=== PATIENT | female | born 2005 | race Asian ===

== ENCOUNTER 2024-07-15 08:51 | Outpatient (AMB) | payer OTHER, SELFPAY ==
[2024-07-15 09:09] VITALS: BP 97/61; PULSE 75; RESP 18; TEMP 36.2; O2SAT 98; BMI 23.9
--- NOTE | 2024-07-15 09:09 | OBCLNT_ITS ---
Vital Signs 07/15/24 09:09 Height 1.5 m Height Method Stated Weight 53.751 kg Weight Measurement Method Standing Scale BMI 23.9 BP 97/61 Blood Pressure Source Automatic Cuff Blood Pressure Location Left Upper Arm Position Sitting Respiration 18 Pulse 75 Pulse Source Monitor Temp 97.2 F Temp Source Oral Pulse Oximetry (%) 98 Oxygen Delivery Method Room Air Allergies/Home Meds Allergies & Medications Allergies No Known Allergies Allergy (Verified 07/15/24 09:11) Medication Reconciliation vits no.126-ferrous fum 28 mg iron-folic acid 800 mcg tablet (Classic ) 0.126 - 28 tab PO DAILY 30 days #60 tabs 07/15/24 [Rx] Intake Visit Data Collection New Patient or Established: New Patient (never been to [facility]) Reason for Visit:: OBC Seen by Clinical Staff ONLY (RN/MA): No Plasma Center Technician Required: No Do You Feel Safe at Home: Yes Authorities Contacted: N/A PCP or OBGYN visit in last 3 months: Yes Date of Last PCP or OBGYN visit: 06/03/24 Hx Now: Yes Are you currently on any form of Control: No Last menstrual period: 03/10/25 Pain Present Currently: No Pain Scale Used: Worrell-Suarez/Numerical Pain scale:: 0 Smoking Status Smoking Status: Never smoker Questionnaires Covid-19 Vaccine Questionnaire Has patient been vacinated for Covid-19 Have you been vacinated for Covid-19: Yes PHQ-9 PHQ-2 Over the last 2 weeks, how often have you been bothered by any of the following problems? 1. Little interest or pleasure in doing things: not at all 2. Feeling down, depressed, or hopeless: not at all Total score: 0 PHQ-9 3. Trouble falling or staying asleep, or sleeping too much: Not at all 4. Feeling tired or having little energy: Not at all 5. Poor appetite or overeating: Not at all 6. Feeling bad about yourself - or that you are a failure or have let yourself or your family down: Not at all 7. Trouble concentrating on things, such as reading the newspaper or watching television: Not at all 8. Moving or speaking so slowly that other people could have noticed? - Or the opposite - being so fidgety or restless that you have been moving around a lot more than usual: not at all 9. Thoughts that you would be better off or of hurting yourself in some way: Not at all Total score: 0 If you checked off any problems, how difficult have these problems made it for you to do your work, take care of things at home, or get along with other people?: not difficult at all Source: Developed by Drs. Ftio Ramos, Ladan Munoz, Jass Genao and colleagues, with an educational tiana from [employer]. Depression screen completed yes Social History Living Situation History Marital Status: Lives With: Family Housing: House Tobacco History Smoking Status: Never smoker Second Hand Smoke Exposure: No Alcohol History Alcohol Intake: Never Domestic Abuse History Do You Feel Safe at Home: Yes Past Medical History Past Medical History Have you ever been diagnosed with any of the following: History of Present Illness HPI Narrative 18 yo , IUP 19w1 for oBI. late to care. LMP 03/10/25, EDC 12/15/24. unsure date. + fm, no ptl complaints. denies existing medical problem, no social habit,no surgery. FOB is with patient tday, taking PNV,needs refill OB Initial Visit OB Flowsheet OB Flowsheet Initial Weight: Not Recorded Date -?-?-?-?-?-?-?-?-?-?-?-?- EGA Weight Edema CTX Effacement BP Fundal ht Pres Dilation Effacement Station Visit Note Alb Glu FHR Mov 07/15/24 -?-?-?-?-?-?-?-?-?-?-?-?- 18w 1d 53.751 kg absent absent 97/61 19 unstable 18 yo for OBI, no OB complaints today. + movemeny, denies PTL complaints. LMP 03/10/25. unsure date. EDC 12/15/24. refill PNV, start calcium and vitamin D daily. schedule MFM sono for anatomy, OB panel with UT and NIPT/carrier screen today. discuss ptl precaution,diet and walking. rtc 3 week 156 active Menstrual History Menstrual reliability: definite Flow: normal Menstrual regularity: regular Monthly: Yes Age at menarche: 12 On control pills at conception: No OB History : 1 Para: 0 Hx # Pregnancies: 0 Hx Total # of Abortions (Spontaneous & Elective): 0 # of Living Children: 0 Infection History & Risk Evaluation History of STDs: none HIV risk evaluation: low risk Hepatitis B risk evaluation: low risk Patient or partner has history of Genital Herpes: No Varicella/chicken pox status: immunized Genetic Screening & History Genetic Screening/Teratology Counseling - Includes patient, baby's father, or anyone in either family with: 1. Patient's age 35 years or older as of estimated date of delivery: No 2. Thalassemia (Irish, Luxembourgish, Mediterranean, or Background); MCV less than 80: No 3. Neural Tube Defect (Meningomyelocele, Spina Bifida, or Anencephaly): No 4. Congenital Heart Defect: No 5. Down Syndrome: No 6. Damien-Sachs (Ashkenazi Religion, Cajun, [place]): No 7. Lee Ann Disease (Ashkenazi Religion): No 8. Familial Dysautonomia (Ashkenazi Religion): No 9. Sickle Cell Disease or Trait (): No 10. Hemophilia or other blood disorders: No 11. Muscular Dystrophy: No 12. Cystic Fibrosis: No 13. [place]'s Chorea: No 14. Mental Retardation/Autism: No 15. Other inherited genetic or chromosomal disorder: No 16. Maternal Metabolic Disorder (EG,TYPE 1 Diabetes, PKU): No 17. Patient or baby's father had a child with defects not listed above: No 18. Recurrent loss or a stillbirth: No 19. Medications (including supplements, vitamins, herbs or otc drugs)/illicit/recreational drugs/alcohol since last menstrual period: No 20. Any other: No Infection History 1. Live with someone with TB or exposed to TB: No 2. Rash or viral illness since last menstrual period: No 3. Hepatitis B,C: No Other (see comments) Source: [employer] Review of Systems Review of Systems Systems Reviewed: All systems reviewed, normal except as documented Exam Narrative Physical exam: FH 19, fht 156 General Limitations: no limitations General Appearance: alert, in no apparent distress, comfortable, cooperative, healthy appearing, well developed and well groomed Head Head exam: atraumatic, normocephalic and normal inspection Chest Chest inspection: Present normal inspection and symmetric chest wall rise Resp Respiratory exam: Present normal lung sounds bilaterally Card Cardiovascular exam: Present regular rate, normal rhythm and normal heart sounds Abdominal Abdominal exam: Present soft and normal bowel sounds Psych Psychiatric exam: Present normal affect and normal mood Assessment & Plan Diagnosis / Problem List (1) Encounter for supervision of normal first , second trimester: Status: Acute Plan schedule MFM visit for anatomy scan, OB panel, UT NIPT and carrier screen, refil l PNV,, start vitamin D and calcium. discuss diet, walk 40 minute daily, PTL precaution. rtc 3 week Additional Plan Follow Up: 3 Weeks (OBC) Office Procedures OB Clinic LOC & Office Proc's Nursing/Assessment Patient Status: Initial/New Patient OB Clinic Nursing Assessment: BP Monitoring, Medication Reconciliation, Update PMH in EMR and Vital Signs OB Clinic Coordination of Care: Consent,records obtained, informed consent, Education Simp Pt/Fam, Lab and Imaging orders and Staff clarify orders New Patient Charge New Patient Point Assignment: [id number] New Patient Point Charge: RDA Level 3 ([id number])
== END 2024-07-15 09:56 | disposition home or self-care (01) ==
LOC: HODSOBC 08:51
PROVIDERS: Supervising Provider Advanced Practice Midwife; Visit Provider Advanced Practice Midwife
DX: Z34.02 Encounter for supervision of normal first pregnancy, second trimester (principal); Z3A.18 18 weeks gestation of pregnancy
CPT/HCPCS: 81001; 99203; G0463

== ENCOUNTER 2024-08-05 08:55 | Outpatient (AMB) | payer OTHER, SELFPAY ==
[2024-08-05 09:14] VITALS: BP 100/61; PULSE 78; RESP 17; TEMP 36.5; O2SAT 96; BMI 24.0
--- NOTE | 2024-08-05 09:14 | OBCLNT_ITS ---
Vital Signs 08/05/24 09:14 Height 1.5 m Height Method Stated Weight 54.204 kg Weight Measurement Method Standing Scale BMI 24.0 BP 100/61 Blood Pressure Source Automatic Cuff Blood Pressure Location Right Upper Arm Position Sitting Respiration 17 Pulse 78 Pulse Source Monitor Temp 97.7 F Temp Source Temporal Artery Scan Pulse Oximetry (%) 96 Oxygen Delivery Method Room Air Allergies/Home Meds Allergies & Medications Allergies No Known Allergies Allergy (Verified 08/05/24 09:15) Medication Reconciliation ferrous sulfate 325 mg (65 mg iron) tablet 325 mg PO BID 30 days #60 tabs 07/10 11/02 [Rx] vits no.126-ferrous fum 28 mg iron-folic acid 800 mcg tablet (Classic ) 0.126 - 28 tab PO DAILY 30 days #60 tabs 08/05/24 [Rx] Intake Visit Data Collection New Patient or Established: Established Patient (seen at [facility] within 3 years) Reason for Visit:: OBC Seen by Clinical Staff ONLY (RN/MA): No Dental Hygiene Teacher Required: No Do You Feel Safe at Home: Yes Authorities Contacted: N/A PCP or OBGYN visit in last 3 months: Yes Date of Last PCP or OBGYN visit: 07/15/24 Hx Now: Yes Are you currently on any form of Control: No Pain Present Currently: No Pain Scale Used: Worrell-Suarez/Numerical Pain scale:: 0 Smoking Status Smoking Status: Never smoker Questionnaires Covid-19 Vaccine Questionnaire Has patient been vacinated for Covid-19 Have you been vacinated for Covid-19: No PHQ-9 PHQ-2 Over the last 2 weeks, how often have you been bothered by any of the following problems? 1. Little interest or pleasure in doing things: not at all 2. Feeling down, depressed, or hopeless: not at all Total score: 0 PHQ-9 3. Trouble falling or staying asleep, or sleeping too much: Not at all 4. Feeling tired or having little energy: Not at all 5. Poor appetite or overeating: Not at all 6. Feeling bad about yourself - or that you are a failure or have let yourself or your family down: Not at all 7. Trouble concentrating on things, such as reading the newspaper or watching television: Not at all 8. Moving or speaking so slowly that other people could have noticed? - Or the opposite - being so fidgety or restless that you have been moving around a lot more than usual: not at all 9. Thoughts that you would be better off or of hurting yourself in some way: Not at all Total score: 0 If you checked off any problems, how difficult have these problems made it for you to do your work, take care of things at home, or get along with other people?: not difficult at all Source: Developed by Drs. Fito Ramos, Ladan Munoz, Jass Genao and colleagues, with an educational tiana from [employer]. Depression screen completed yes Social History Living Situation History Lives With: Family Housing: House Tobacco History Smoking Status: Never smoker Second Hand Smoke Exposure: No Alcohol History Alcohol Intake: Never Domestic Abuse History Do You Feel Safe at Home: Yes Care OB Visit Log OB Flowsheet Initial Weight: Not Recorded Date -?-?-?-?-?-?-?-?-?-?-?-?- EGA Weight BP Alb Glu CTX Pres Fundal ht FHR Mov Dilation Station Effacement Hx Notes Visit Note 07/15/24 -?-?-?-?-?-?-?-?-?-?-?-?- 18w 1d 53.751 kg 97/61 absent unstable 19 156 active 18 yo for OBI, no OB complaints today. + movemeny, denies PTL complaints. LMP 03/10/25. unsure date. EDC 12/15/24. refill PNV, start calcium and vitamin D daily. schedule MFM sono for anatomy, OB panel with [place] and NIPT/carrier screen today. discuss ptl precaution,diet and walking. rtc 3 week 08/05/24 -?-?-?-?-?-?-?-?-?-?-?-?- 21w 1d 54.204 kg 100/61 absent unknown 20 145 active reports good FM, denies PTL complaints,no leaking. keep MFM appointment 08/26, discuss PTL com plaints, refill iron and prenatals, hydrate, rtc 4 wk MARGO Calculator Estimated Delivery Date Method Current WG Current Estimate 12/15/24 LMP (Certain) 21w 1d Notes Visit Date: 08/05/24 Last Updated by: Medina Blanco CNM 18 yo , lmp 03/10/24. EDC 12/15/24. O+,abs-, rpr;;nr, rub imm, hbsag-,hiv-, HC-, GC/CT-, NIPT-(boy), carrier screen- Office Procedures OB Clinic LOC & Office Proc's Nursing/Assessment Patient Status: Established Patient OB Clinic Nursing Assessment: Medication Reconciliation, Update PMH in EMR and Vital Signs OB Clinic Coordination of Care: Complex Care and Chronic Disease 1-5, Consent,records obtained, informed consent, Education Simp Pt/Fam and Staff clarify orders Special Needs: Heart tones Established Patient Charge Established Patient Point Assignment: 115 Established Patient Point Charge: EP Level 3 (80-115) Assessment & Plan Diagnosis / Problem List (1) Encounter for supervision of normal first , second trimester: Status: Acute Plan refill PNV and iron, increase fluid, discuss PTL s/s, ER precaution. keep MFM appointment 08/26. rtc 4 week Additional Plan Follow Up: 4 Weeks (OBC)
== END 2024-08-05 09:48 | disposition home or self-care (01) ==
LOC: HODSOBC 08:55
PROVIDERS: Supervising Provider Advanced Practice Midwife; Visit Provider Advanced Practice Midwife
DX: Z34.02 Encounter for supervision of normal first pregnancy, second trimester (principal); Z3A.21 21 weeks gestation of pregnancy
CPT/HCPCS: 99213; G0463

== ENCOUNTER 2024-08-26 08:31 | Outpatient (AMB) | payer OTHER, SELFPAY ==
--- NOTE | 2024-08-26 08:38 | OBCLNT_ITS ---
Vital Signs 08/26/24 08:39 Height 1.5 m Height Method Stated Weight 55.849 kg Weight Measurement Method Standing Scale BMI 24.7 BP 114/66 Blood Pressure Source Automatic Cuff Blood Pressure Location Left Upper Arm Position Sitting Respiration 18 Pulse 86 Pulse Source Monitor Temp 96.8 F Temp Source Oral Pulse Oximetry (%) 98 Oxygen Delivery Method Room Air Allergies/Home Meds Allergies & Medications Allergies No Known Allergies Allergy (Verified 08/26/24 08:39) Medication Reconciliation ferrous sulfate 325 mg (65 mg iron) tablet 325 mg PO BID 30 days #60 tabs 08/05/24 [Rx Confirmed 08/26/24] vits no.126-ferrous fum 28 mg iron-folic acid 800 mcg tablet (Classic ) 0.126 - 28 tab PO DAILY 30 days #60 tabs 08/05/24 [Rx Confirmed 08/26/24] Intake Visit Data Collection New Patient or Established: Established Patient (seen at [facility] within 3 years) Reason for Visit:: OBC Seen by Clinical Staff ONLY (RN/MA): No Braddisher Required: No Do You Feel Safe at Home: Yes Authorities Contacted: N/A PCP or OBGYN visit in last 3 months: Yes Date of Last PCP or OBGYN visit: 08/05/24 Hx Now: Yes Are you currently on any form of Control: No Pain Present Currently: No Pain Scale Used: Worrell-Suarez/Numerical Pain scale:: 0 Smoking Status Smoking Status: Never smoker Questionnaires Covid-19 Vaccine Questionnaire Has patient been vacinated for Covid-19 Have you been vacinated for Covid-19: No PHQ-9 PHQ-2 Over the last 2 weeks, how often have you been bothered by any of the following problems? 1. Little interest or pleasure in doing things: not at all 2. Feeling down, depressed, or hopeless: not at all Total score: 0 PHQ-9 3. Trouble falling or staying asleep, or sleeping too much: Not at all 4. Feeling tired or having little energy: Not at all 5. Poor appetite or overeating: Not at all 6. Feeling bad about yourself - or that you are a failure or have let yourself or your family down: Not at all 7. Trouble concentrating on things, such as reading the newspaper or watching television: Not at all 8. Moving or speaking so slowly that other people could have noticed? - Or the opposite - being so fidgety or restless that you have been moving around a lot more than usual: not at all 9. Thoughts that you would be better off or of hurting yourself in some way: Not at all Total score: 0 If you checked off any problems, how difficult have these problems made it for you to do your work, take care of things at home, or get along with other people?: not difficult at all Source: Developed by Drs. Fito Ramos, Ladan Munoz, Jass Genao and colleagues, with an educational tiana from [employer]. Depression screen completed yes Social History Living Situation History Lives With: Family Housing: House Tobacco History Smoking Status: Never smoker Second Hand Smoke Exposure: No Alcohol History Alcohol Intake: Never Domestic Abuse History Do You Feel Safe at Home: Yes Care OB Visit Log OB Flowsheet Initial Weight: Not Recorded Date -?-?-?-?-?-?-?-?-?-?-?-?- EGA Weight BP Alb Glu CTX Pres Fundal ht FHR Mov Dilation Station Effacement Hx Notes Visit Note 07/15/24 -?-?-?-?-?-?-?-?-?-?-?-?- 18w 1d 53.751 kg 97/61 absent unstable 19 156 active 18 yo for OBI, no OB complaints today. + movemeny, denies PTL complaints. LMP 03/10/25. unsure date. EDC 12/15/24. refill PNV, start calcium and vitamin D daily. schedule M sono for anatomy, OB panel with UT and NIPT/carrier screen today. discuss ptl precaution,diet and walking. rtc 3 week 08/05/24 -?-?-?-?-?-?-?-?-?-?-?-?- 21w 1d 54.204 kg 100/61 absent unknown 20 145 active reports good FM, denies PTL complaints,no leaking. keep MFM appointment 08/26, discuss PTL complaints, refill iron and prenatals, hydrate, rtc 4 wk 08/26/24 -?-?-?-?-?-?-?-?-?-?-?-?- 24w 1d 55.849 kg 114/66 absent unknown 25 150 active +FM, No UCs, No VB Has level 2 ultrasound scheduled today in [facility] MARGO Calculator Estimated Delivery Date Method Current WG Current Estimate 12/15/24 LMP (Certain) 24w 1d Expected Delivery Route/Plan Anticipate Notes Visit Date: 08/26/24 Last Updated by: Selene Sherwood (OB Clinic)MD Patient presents today with the father of the baby. Labs reviewed. Blood type reviewed. NIPT normal. Has level 2 ultrasound scheduled today. Visit Date: 08/05/24 Last Updated by: Medina Blanco, CNM 18 yo , lmp 03/10/24. EDC 12/15/24. O+,abs-, rpr;;nr, rub imm, hbsag-,hiv-, HC-, GC/CT-, NIPT-(boy), carrier screen- Office Procedures OB Clinic LOC & Office Proc's Nursing/Assessment Patient Status: Established Patient OB Clinic Nursing Assessment: Medication Reconciliation, Update PMH in EMR and Vital Signs OB Clinic Coordination of Care: Education Complex Pt/Fam, Consent,records obtained, informed consent, Lab and Imaging orders, Results/Orders obtained and Staff clarify orders Special Needs: Heart tones Established Patient Charge Established Patient Point Assignment: 115 Established Patient Point Charge: EP Level 3 (80-115) Assessment & Plan Diagnosis / Problem List (1) : Status: Acute Qualifiers: Weeks of gestation: 24 weeks Qualified Code(s): Z3A.24 - 24 weeks gestation of
[2024-08-26 08:39] VITALS: BP 114/66; PULSE 86; RESP 18; TEMP 36; O2SAT 98; BMI 24.7
== END 2024-08-26 09:18 | disposition home or self-care (01) ==
LOC: HODSOBC 08:31
PROVIDERS: Supervising Provider Obstetrics & Gynecology; Visit Provider Obstetrics & Gynecology
DX: Z34.02 Encounter for supervision of normal first pregnancy, second trimester (principal); Z3A.24 24 weeks gestation of pregnancy
CPT/HCPCS: 99213; G0463

== ENCOUNTER 2024-09-28 09:00 | Outpatient (AMB) | payer OTHER, SELFPAY ==
--- NOTE | 2024-09-28 09:20 | AMB.OBVISIT ---
Vital Signs 09/28/24 09:23 Height 1.5 m Height Method Measured Weight 57.209 kg Weight Measurement Method Standing Scale BMI 25.4 BP 103/64 Blood Pressure Source Automatic Cuff Blood Pressure Location Right Upper Arm Position Sitting Respiration 17 Pulse 86 Pulse Source Monitor Temp 97.7 F Temp Source Temporal Artery Scan Pulse Oximetry (%) 97 Oxygen Delivery Method Room Air Allergies/Home Meds Allergies & Medications Allergies No Known Allergies Allergy (Verified 09/28/24 09:24) Medication Reconciliation ferrous sulfate 325 mg (65 mg iron) tablet 325 mg PO BID 30 days #60 tabs 08/05/24 [Rx Confirmed 09/28/24] vits no.126-ferrous fum 28 mg iron-folic acid 800 mcg tablet (Classic ) 0.126 - 28 tab PO DAILY 30 days #60 tabs 08/05/24 [Rx Confirmed 09/28/24] Intake Visit Data Collection New Patient or Established: Established Patient (seen at [facility] within 3 years) Reason for Visit:: OBC Consent obtained for Telemed Visit: No Seen by Clinical Staff ONLY (RN/MA): No Flat Grinder Operator Required: No Do You Feel Safe at Home: Yes Authorities Contacted: N/A PCP or OBGYN visit in last 3 months: Yes Date of Last PCP or OBGYN visit: 08/26/24 Hx Now: Yes Are you currently on any form of Control: No Pain Present Currently: No Pain Scale Used: Worrell-Suarez/Numerical Pain scale:: 0 Smoking Status Smoking Status: Never smoker Questionnaires Covid-19 Vaccine Questionnaire Has patient been vacinated for Covid-19 Have you been vacinated for Covid-19: Yes PHQ-9 PHQ-2 Over the last 2 weeks, how often have you been bothered by any of the following problems? 1. Little interest or pleasure in doing things: not at all PHQ-9 8. Moving or speaking so slowly that other people could have noticed? - Or the opposite - being so fidgety or restless that you have been moving around a lot more than usual: not at all Source: Developed by Drs. Fito Ramos, Ladan Munoz, Jass Genao and colleagues, with an educational tiana from [employer]. Social History Living Situation History Lives With: Family Housing: House Tobacco History Smoking Status: Never smoker Second Hand Smoke Exposure: No Alcohol History Alcohol Intake: Never Domestic Abuse History Do You Feel Safe at Home: Yes Care OB Visit Log OB Flowsheet Initial Weight: Not Recorded Date <del>?</del> EGA Weight BP Alb Glu CTX Pres Fundal ht FHR Mov Dilation Station Effacement Hx Notes Visit Note 07/15/24 <del>?</del> 18w 1d 53.751 kg 97/61 absent unstable 19 156 active 18 yo for OBI, no OB complaints today. + movemeny, denies PTL complaints. LMP 03/10/25. unsure date. EDC 12/15/24. refill PNV, start calcium and vitamin D daily. schedule MFM sono for anatomy, OB panel with UT and NIPT/carrier screen today. discuss ptl precaution,diet and walking. rtc 3 week 08/05/24 <del>?</del> 21w 1d 54.204 kg 100/61 absent unknown 20 145 active reports good FM, denies PTL complaints,no leaking. keep MFM appointment 08/26, discuss PTL complaints, refill iron and prenatals, hydrate, rtc 4 wk 08/26/24 <del>?</del> 24w 1d 55.849 kg 114/66 absent unknown 25 150 active +FM, No UCs, No VB Has level 2 ultrasound scheduled today in [place] 09/28/24 <del>?</del> 28w 6d 57.209 kg 103/64 absent unknown 29 134 active Good movement no contractions no loss of fluids no complaints MARGO Calculator Estimated Delivery Date Method Current WG Current Estimate 12/15/24 LMP (Certain) 28w 6d Expected Delivery Route/Plan 19-year-old G1, P0 Anticipate Notes Visit Date: 09/28/24 Last Updated by: Selene Sherwood (OB Clinic)MD Normal level 2 ultrasound from 08/27/[address] Sellers in [facility]. Ordered glucose challenge test, RPR and CBC at [facility]. Father the baby present with patient. Visit Date: 08/26/24 Last Updated by: Selene Sherwood (OB Clinic)MD Patient presents today with the father of the baby. Labs reviewed. Blood type reviewed. NIPT normal. Has level 2 ultrasound scheduled today. Visit Date: 08/05/24 Last Updated by: Medina Blanco CNM 18 yo , lmp 03/10/24. EDC 12/15/24. O+,abs-, rpr;;nr, rub imm, hbsag-,hiv-, HC-, GC/CT-, NIPT-(boy), carrier screen- Office Procedures OB Clinic LOC & Office Proc's Nursing/Assessment Patient Status: Established Patient OB Clinic Nursing Assessment: Medication Reconciliation, Update PMH in EMR and Vital Signs OB Clinic Coordination of Care: Complex Care and Chronic Disease 1-5, Consent,records obtained, informed consent, Education Simp Pt/Fam and 4+ Authorizations needed Special Needs: Heart tones Established Patient Charge Established Patient Point Assignment: 130 Established Patient Point Charge: EP Level 4 (120-155)
[2024-09-28 09:23] VITALS: BP 103/64; PULSE 86; RESP 17; TEMP 36.5; O2SAT 97; BMI 25.4
== END 2024-09-28 09:29 | disposition home or self-care (01) ==
LOC: HODSOBC 09:00
PROVIDERS: Supervising Provider Obstetrics & Gynecology; Visit Provider Obstetrics & Gynecology
DX: Z34.03 Encounter for supervision of normal first pregnancy, third trimester (principal); Z3A.28 28 weeks gestation of pregnancy
CPT/HCPCS: 99214; G0463

== ENCOUNTER 2024-10-26 09:53 | Outpatient (AMB) | payer OTHER, SELFPAY ==
[2024-10-26 10:19] VITALS: BP 102/61; PULSE 76; RESP 17; TEMP 36.6; O2SAT 98; BMI 25.0
--- NOTE | 2024-10-26 10:19 | AMB.OBVISIT ---
Vital Signs 10/26/24 10:19 Height 1.5 m Height Method Measured Weight 56.245 kg Weight Measurement Method Standing Scale BMI 25.0 BP 102/61 Blood Pressure Source Automatic Cuff Blood Pressure Location Right Upper Arm Position Sitting Respiration 17 Pulse 76 Pulse Source Monitor Temp 97.9 F Temp Source Temporal Artery Scan Pulse Oximetry (%) 98 Oxygen Delivery Method Room Air Allergies/Home Meds Allergies & Medications Allergies No Known Allergies Allergy (Verified 10/26/24 10:20) Medication Reconciliation ferrous sulfate 325 mg (65 mg iron) tablet 325 mg PO BID 30 days #60 tabs 08/05/24 [Rx Confirmed 10/26/24] vits no.126-ferrous fum 28 mg iron-folic acid 800 mcg tablet (Classic ) 0.126 - 28 tab PO DAILY 30 days #60 tabs 08/05/24 [Rx Confirmed 10/26/24] Intake Visit Data Collection New Patient or Established: Established Patient (seen at [facility] within 3 years) Reason for Visit:: OBC Consent obtained for Telemed Visit: No Seen by Clinical Staff ONLY (RN/MA): No 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 1. Little interest or pleasure in doing things: not at all PHQ-9 8. Moving or speaking so slowly that other people could have noticed? - Or the opposite - being so fidgety or restless that you have been moving around a lot more than usual: not at all Source: Developed by Drs. Fito Ramos, Ladan Munoz, Jass Genao and colleagues, with an educational tiana from [employer]. Social History Living Situation History Lives With: Family Housing: House Tobacco History Smoking Status: Never smoker Second Hand Smoke Exposure: No Alcohol History Alcohol Intake: Never Domestic Abuse History Do You Feel Safe at Home: Yes Care OB Visit Log OB Flowsheet Initial Weight: Not Recorded Date <del>?</del> EGA Weight BP Alb Glu CTX Pres Fundal ht FHR Mov Dilation Station Effacement Hx Notes Visit Note 07/15/24 <del>?</del> 18w 1d 53.751 kg 97/61 absent unstable 19 156 active 18 yo for OBI, no OB complaints today. + movemeny, denies PTL complaints. LMP 03/10/25. unsure date. EDC 12/15/24. refill PNV, start calcium and vitamin D daily. schedule MFM sono for anatomy, OB panel with UT and NIPT/carrier screen today. discuss ptl precaution,diet and walking. rtc 3 week 08/05/24 <del>?</del> 21w 1d 54.204 kg 100/61 absent unknown 20 145 active reports good FM, denies PTL complaints,no leaking. keep MFM appointment 08/26, discuss PTL complaints, refill iron and prenatals, hydrate, rtc 4 wk 08/26/24 <del>?</del> 24w 1d 55.849 kg 114/66 absent unknown 25 150 active +FM, No UCs, No VB Has level 2 ultrasound scheduled today in [place] 09/28/24 <del>?</del> 28w 6d 57.209 kg 103/64 absent unknown 29 134 active Good movement no contractions no loss of fluids no complaints 10/26/24 <del>?</del> 32w 6d 56.245 kg 102/61 absent unknown 32 156 active Good movement. No contractions no loss of fluids 1 hour glucose on chart .89 MARGO Calculator Estimated Delivery Date Method Current WG Current Estimate 12/15/24 LMP (Certain) 32w 6d Expected Delivery Route/Plan 19-year-old G1, P0 Anticipate Notes Visit Date: 10/26/24 Last Updated by: Selene Sherwood (OB Clinic)MD Schedule ultrasound for growth and position at 35 weeks Visit Date: 09/28/24 Last Updated by: Selene Sherwood (OB Clinic)MD Normal level 2 ultrasound from 08/27/[address] Sellers in [place] reviewed. Ordered glucose challenge test, RPR and CBC at [facility]. Father the baby present with patient. Visit Date: 08/26/24 Last Updated by: Selene Sherwood (OB Clinic)MD Patient presents today with the father of the baby. Labs reviewed. Blood type reviewed. NIPT normal. Has level 2 ultrasound scheduled today. Visit Date: 08/05/24 Last Updated by: Medina Blanco, CNM 18 yo , lmp 03/10/24. EDC 12/15/24. O+,abs-, rpr;;nr, rub imm, hbsag-,hiv-, HC-, GC/CT-, NIPT-(boy), carrier screen- Office Procedures OB Clinic LOC & Office Proc's Nursing/Assessment Patient Status: Established Patient OB Clinic Nursing Assessment: Medication Reconciliation, Update PMH in EMR and Vital Signs OB Clinic Coordination of Care: Complex Care and Chronic Disease 1-5, Consent,records obtained, informed consent, Education Simp Pt/Fam, 4+ Authorizations needed, Lab and Imaging orders, Ref for ancillary service and Results/Orders obtained Special Needs: Heart tones Established Patient Charge Established Patient Point Assignment: 180 Established Patient Point Charge: EP Level 5 (160-above) Assessment & Plan Diagnosis / Problem List (1) : Status: Acute Qualifiers: Weeks of gestation: 32 weeks Qualified Code(s): Z3A.32 - 32 weeks gestation of Plan: Order ultrasound for size and dates also for CLARA and position Additional Plan Follow Up: 2 Weeks
== END 2024-10-26 10:31 | disposition home or self-care (01) ==
LOC: HODSOBC 09:53
PROVIDERS: Supervising Provider Obstetrics & Gynecology; Visit Provider Obstetrics & Gynecology
DX: Z34.03 Encounter for supervision of normal first pregnancy, third trimester (principal); Z3A.32 32 weeks gestation of pregnancy
CPT/HCPCS: 99215; G0463

== ENCOUNTER → 2024-11-10 | Outpatient (CLI) | payer OTHER, SELFPAY ==
--- NOTE | 2024-11-10 15:30 | XR_ITS ---
Examination: Complete OB ultrasound greater than 14 weeks Date and time of exam: November 10, 2024 1528 hours INDICATIONS: Supervision of otherwise normal Findings: Viable intrauterine single fetus with single amniotic sac presentation cephalic Cardiac motion 1:30 BPM Placenta posterior grade 2 Umbilical cord insertion 3 vessel seen. Amniotic fluid index 12.5 cm spine maternal left Right ovary 3.8 cm arterial flow Left ovary obscured by bowel gas.. Composite estimated gestational age based on BPD, head circumference, abdominal circumference, femur length is 35 weeks 3 days Estimated weight 2770 g. Survey of intracranial anatomy, spinal anatomy, abdominal anatomy, four-chamber heart performed with no abnormalities identified. Impression: Viable intrauterine gestation cephalic presentation.
== END | disposition home or self-care (01) ==
PROVIDERS: Referring Provider Obstetrics & Gynecology; Visit Provider Obstetrics & Gynecology
DX: Z34.93 Encounter for supervision of normal pregnancy, unspecified, third trimester (principal); Z3A.35 35 weeks gestation of pregnancy
CPT/HCPCS: 76805

== ENCOUNTER 2024-11-16 09:11 | Outpatient (AMB) | payer OTHER, SELFPAY ==
[2024-11-16 09:31] VITALS: BP 95/57; PULSE 85; RESP 16; TEMP 36.2; O2SAT 97; BMI 25.4
--- NOTE | 2024-11-16 09:31 | OBCLNT_ITS ---
Vital Signs 11/16/24 09:31 Height 1.5 m Height Method Stated Weight 57.153 kg Weight Measurement Method Standing Scale BMI 25.4 BP 95/57 L Blood Pressure Source Automatic Cuff Blood Pressure Location Left Upper Arm Position Sitting Respiration 16 Pulse 85 Pulse Source Monitor Temp 97.2 F Temp Source Oral Pulse Oximetry (%) 97 Oxygen Delivery Method Room Air Allergies/Home Meds Allergies & Medications Allergies No Known Allergies Allergy (Verified 11/16/24 09:31) Medication Reconciliation ferrous sulfate 325 mg (65 mg iron) tablet 325 mg PO BID 30 days #60 tabs 08/05/24 [Rx Confirmed 11/16/24] vits no.126-ferrous fum 28 mg iron-folic acid 800 mcg tablet (Classic ) 0.126 - 28 tab PO DAILY 30 days #60 tabs 08/05/24 [Rx Confirmed 11/16/24] Intake Visit Data Collection New Patient or Established: Established Patient (seen at [facility] within 3 years) Reason for Visit:: OBC Seen by Clinical Staff ONLY (RN/MA): No 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 1. Little interest or pleasure in doing things: not at all 2. Feeling down, depressed, or hopeless: not at all Total score: 0 PHQ-9 3. Trouble falling or staying asleep, or sleeping too much: Not at all 4. Feeling tired or having little energy: Not at all 5. Poor appetite or overeating: Not at all 6. Feeling bad about yourself - or that you are a failure or have let yourself or your family down: Not at all 7. Trouble concentrating on things, such as reading the newspaper or watching television: Not at all 8. Moving or speaking so slowly that other people could have noticed? - Or the opposite - being so fidgety or restless that you have been moving around a lot more than usual: not at all 9. Thoughts that you would be better off or of hurting yourself in some way: Not at all Total score: 0 If you checked off any problems, how difficult have these problems made it for you to do your work, take care of things at home, or get along with other people?: not difficult at all Source: Developed by Drs. Fito Ramos, Ladan Munoz, Jass Genao and colleagues, with an educational tiana from [employer]. Depression screen completed yes Social History Living Situation History Lives With: Family Housing: House Tobacco History Smoking Status: Never smoker Second Hand Smoke Exposure: No Alcohol History Alcohol Intake: Never Domestic Abuse History Do You Feel Safe at Home: Yes Care OB Visit Log OB Flowsheet Initial Weight: 51 kg Date -?-?-?-?-?-?-?-?-?-?-?-?- EGA Weight BP Alb Glu CTX Pres Fundal ht FHR Mov Dilation Station Effacement Hx Notes Visit Note 07/15/24 -?-?-?-?-?-?-?-?-?-?-?-?- 18w 1d 53.751 kg (+2750.696 g) 97/61 absent unstable 19 156 act tiffani 18 yo for OBI, no OB complaints today. + movemeny, denies PTL complaints. LMP 03/10/25. unsure date. EDC 12/15/24. refill PNV, start calcium and vitamin D daily. schedule MFM sono for anatomy, OB panel with UT and NIPT/carrier screen today. discuss ptl precaution,diet and walking. rtc 3 week 08/05/24 -?-?-?-?-?-?-?-?-?-?-?-?- 21w 1d 54.204 kg (+3204.288 g) 100/61 absent unknown 20 145 act tiffani reports good FM, denies PTL complaints,no leaking. keep MFM appointment 08/26, discuss PTL complaints, refill iron and prenatals, hydrate, rtc 4 wk 08/26/24 -?-?-?-?-?-?-?-?-?-?-?-?- 24w 1d 55.849 kg (+4848.56 g) 114/66 absent unknown 25 150 acti ve +FM, No UCs, No VB Has level 2 ultrasound scheduled today in [place] 09/28/24 -?-?-?-?-?-?-?-?-?-?-?-?- 28w 6d 57.209 kg (+6209.337 g) 103/64 absent unknown 29 134 act tiffani Good movement no contractions no loss of fluids no complaints 10/26/24 -?-?-?-?-?-?-?-?-?-?-?-?- 32w 6d 56.245 kg (+5245.454 g) 102/61 absent unknown 32 156 act tiffani Good movement. No contractions no loss of fluids 1 hour glucose on chart .89 11/16/24 -?-?-?-?-?-?-?-?-?-?-?-?- 35w 6d 57.153 kg (+6152.638 g) 95/57 occasional cephalic 36 154 active 2.5 -1 75 +FM no UCs or LOF GBBS done today MARGO Calculator Estimated Delivery Date Method Current WG Current Estimate 12/15/24 LMP (Certain) 35w 6d Expected Delivery Route/Plan 19-year-old G1, P0 Anticipate LMP 03/10/24 Specific Issue/Plans Does not desire epidural. Will consider fentanyl PNC Labs: O+/Ab-/RI/RPR NR/HepBSag-/HIV-/Hep c-/GC-/Chlam-/NIPT 46 XY Notes Visit Date: 10/26/24 Last Updated by: Selene Sherwood (OB Clinic)MD Schedule ultrasound for growth and position at 35 weeks Visit Date: 09/28/24 Last Updated by: Selene Sherwood (OB Clinic)MD Normal level 2 ultrasound from 08/27/[address] Sellers in [facility]. Ordered glucose challenge test, RPR and CBC at [facility]. Father the baby present with patient. Visit Date: 08/26/24 Last Updated by: Selene Sherwood (OB Clinic)MD Patient presents today with the father of the baby. Labs reviewed. Blood type reviewed. NIPT normal. Has level 2 ultrasound scheduled today. Visit Date: 08/05/24 Last Updated by: Medina Blanco CNM 18 yo , lmp 03/10/24. EDC 12/15/24. O+,abs-, rpr;;nr, rub imm, hbsag-,hiv-, HC-, GC/CT-, NIPT-(boy), carrier screen- Office Procedures OB Clinic LOC & Office Proc's Nursing/Assessment Patient Status: Established Patient OB Clinic Nursing Assessment: Medication Reconciliation, Update PMH in EMR and Vital Signs OB Clinic Coordination of Care: Education Complex Pt/Fam, Consent,records obtained, informed consent, Lab and Imaging orders and Staff clarify orders Special Needs: Heart tones Established Patient Charge Established Patient Point Assignment: 110 Established Patient Point Charge: EP Level 3 (80-115) Assessment & Plan Diagnosis / Problem List (1) : Status: Acute Qualifiers: Weeks of gestation: 35 weeks Qualified Code(s): Z3A.35 - 35 weeks gestation of
== END 2024-11-16 10:04 | disposition home or self-care (01) ==
LOC: HODSOBC 09:11
PROVIDERS: Supervising Provider Obstetrics & Gynecology; Visit Provider Obstetrics & Gynecology
DX: Z34.03 Encounter for supervision of normal first pregnancy, third trimester (principal); Z3A.35 35 weeks gestation of pregnancy; Z36.85 Encounter for antenatal screening for Streptococcus B
CPT/HCPCS: 99213; G0463

== ENCOUNTER 2024-11-25 10:26 | Outpatient (AMB) | payer OTHER, SELFPAY ==
[2024-11-25 10:39] VITALS: BP 93/60; PULSE 86; RESP 16; TEMP 36.6; O2SAT 98; BMI 25.2
--- NOTE | 2024-11-25 10:39 | OBCLNT_ITS ---
Vital Signs 11/25/24 10:39 Height 1.5 m Height Method Stated Weight 56.869 kg Weight Measurement Method Standing Scale BMI 25.2 BP 93/60 Blood Pressure Source Automatic Cuff Blood Pressure Location Left Upper Arm Position Sitting Respiration 16 Pulse 86 Pulse Source Monitor Temp 97.8 F Temp Source Oral Pulse Oximetry (%) 98 Oxygen Delivery Method Room Air Allergies/Home Meds Allergies & Medications Allergies No Known Allergies Allergy (Verified 11/25/24 10:40) Medication Reconciliation ferrous sulfate 325 mg (65 mg iron) tablet 325 mg PO BID 30 days #60 tabs 08/05/24 [Rx Confirmed 11/25/24] vits no.126-ferrous fum 28 mg iron-folic acid 800 mcg tablet (Classic ) 0.126 - 28 tab PO DAILY 30 days #60 tabs 08/05/24 [Rx Confirmed 11/25/24] Intake Visit Data Collection New Patient or Established: Established Patient (seen at [facility] within 3 years) Reason for Visit:: CARE Seen by Clinical Staff ONLY (RN/MA): No 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 1. Little interest or pleasure in doing things: not at all 2. Feeling down, depressed, or hopeless: not at all Total score: 0 PHQ-9 3. Trouble falling or staying asleep, or sleeping too much: Not at all 4. Feeling tired or having little energy: Not at all 5. Poor appetite or overeating: Not at all 6. Feeling bad about yourself - or that you are a failure or have let yourself or your family down: Not at all 7. Trouble concentrating on things, such as reading the newspaper or watching television: Not at all 8. Moving or speaking so slowly that other people could have noticed? - Or the opposite - being so fidgety or restless that you have been moving around a lot more than usual: not at all 9. Thoughts that you would be better off or of hurting yourself in some way: Not at all Total score: 0 Source: Developed by Drs. Fito Ramos, Ladan Munoz, Jass Genao and colleagues, with an educational tiana from [employer]. Depression screen completed yes Social History Living Situation History Lives With: Family Housing: House Tobacco History Smoking Status: Never smoker Second Hand Smoke Exposure: No Alcohol History Alcohol Intake: Never Domestic Abuse History Do You Feel Safe at Home: Yes Care OB Visit Log OB Flowsheet Initial Weight: 51 kg Date -?-?-?-?-?-?-?-?-?-?-?-?- EGA Weight BP Alb Glu CTX Pres Fundal ht FHR Mov Dilation Station Effacement Hx Notes Visit Note 07/15/24 -?-?-?-?-?-?-?-?-?-?-?-?- 18w 1d 53.751 kg (+2750.696 g) 97/61 absent unstable 19 156 act tiffani 18 yo for OBI, no OB complaints today. + movemeny, denies PTL complaints. LMP 03/10/25. unsure date. EDC 12/15/24. refill PNV, start calcium and vitamin D daily. schedule MFM sono for anatomy, OB panel with UT and NIPT/carrier screen today. discuss ptl precaution,diet and walking. rtc 3 week 08/05/24 -?-?-?-?-?-?-?-?-?-?-?-?- 21w 1d 54.204 kg (+3204.288 g) 100/61 absent unknown 20 145 act tiffani reports good FM, denies PTL complaints,no leaking. keep MFM appointment 08/26, discuss PTL complaints, refill iron and prenatals, hydrate, rtc 4 wk 08/26/24 -?-?-?-?-?-?-?-?-?-?-?-?- 24w 1d 55.849 kg (+4848.56 g) 114/66 absent unknown 25 150 acti ve +FM, No UCs, No VB Has level 2 ultrasound scheduled today in [place] 09/28/24 -?-?-?-?-?-?-?-?-?-?-?-?- 28w 6d 57.209 kg (+6209.337 g) 103/64 absent unknown 29 134 act tiffani Good movement no contractions no loss of fluids no complaints 10/26/24 -?-?-?-?-?-?-?-?-?-?-?-?- 32w 6d 56.245 kg (+5245.454 g) 102/61 absent unknown 32 156 act tiffani Good movement. No contractions no loss of fluids 1 hour glucose on chart .89 11/16/24 -?-?-?-?-?-?-?-?-?-?-?-?- 35w 6d 57.153 kg (+6152.638 g) 95/57 occasional cephalic 36 154 active 2.5 -1 75 +FM no UCs or LOF GBBS done today 11/25/24 -?-?-?-?-?-?-?-?-?-?-?-?- 37w 1d 56.869 kg (+5869.143 g) 93/60 occasional cephalic 34 157 active Good movement no contractions or loss of fluids. Group B strep negative. MRAGO Calculator Estimated Delivery Date Method Current WG Current Estimate 12/15/24 LMP (Certain) 37w 1d Expected Delivery Route/Plan 19-year-old G1, P0 Anticipate LMP 03/10/24 Specific Issue/Plans Does not desire epidural. Will consider fentanyl PNC Labs: O+/Ab-/RI/RPR NR/HepBSag-/HIV-/Hep c-/GC-/Chlam-/NIPT 46 XY Notes Visit Date: 11/25/24 Last Updated by: Selene Sherwood (OB Clinic)MD Patient has a PUPPS rash on her thighs. Not abdomen. Recommended Zyrtec during the day and Benadryl at night. Visit Date: 10/26/24 Last Updated by: Selene Sherwood (OB Clinic)MD Schedule ultrasound for growth and position at 35 weeks Visit Date: 09/28/24 Last Updated by: Selene Sherwood (OB Clinic)MD Normal level 2 ultrasound from 08/27/[address] Sellers in [place] reviewed. Ordered glucose challenge test, RPR and CBC at [facility]. Father the baby present with patient. Visit Date: 08/26/24 Last Updated by: Selene Sherwood (OB Clinic)MD Patient presents today with the father of the baby. Labs reviewed. Blood type reviewed. NIPT normal. Has level 2 ultrasound scheduled today. Visit Date: 08/05/24 Last Updated by: Medina Blanco, [facility] 18 yo , lmp 03/10/24. EDC 12/15/24. O+,abs-, rpr;;nr, rub imm, hbsag-,hiv-, HC-, GC/CT-, NIPT-(boy), carrier screen- Office Procedures OB Clinic LOC & Office Proc's Nursing/Assessment Patient Status: Established Patient OB Clinic Nursing Assessment: Medication Reconciliation, Update PMH in EMR and Vital Signs OB Clinic Coordination of Care: Complex Care and Chronic Disease 1-5, Consent,records obtained, informed consent, Education Simp Pt/Fam, Lab and Imaging orders, Results/Orders obtained and Staff clarify orders Special Needs: Heart tones Established Patient Charge Established Patient Point Assignment: 135 Established Patient Point Charge: EP Level 4 (120-155) Assessment & Plan Diagnosis / Problem List (1) : Status: Acute Qualifiers: Weeks of gestation: 37 weeks Qualified Code(s): Z3A.37 - 37 weeks gestation of
== END 2024-11-25 10:57 | disposition home or self-care (01) ==
LOC: HODSOBC 10:26
PROVIDERS: Supervising Provider Obstetrics & Gynecology; Visit Provider Obstetrics & Gynecology
DX: Z34.03 Encounter for supervision of normal first pregnancy, third trimester (principal); Z3A.37 37 weeks gestation of pregnancy
CPT/HCPCS: 99214; G0463

== ENCOUNTER 2024-12-04 09:37 | Outpatient (AMB) | payer OTHER, SELFPAY ==
[2024-12-04 09:52] VITALS: BP 102/65; PULSE 88; RESP 16; TEMP 36.2; O2SAT 98; BMI 25.2
--- NOTE | 2024-12-04 09:52 | OBCLNT_ITS ---
Vital Signs 12/04/24 09:52 Height 1.5 m Height Method Stated Weight 56.812 kg Weight Measurement Method Standing Scale BMI 25.2 BP 102/65 Blood Pressure Source Automatic Cuff Blood Pressure Location Left Upper Arm Position Sitting Respiration 16 Pulse 88 Pulse Source Monitor Temp 97.2 F Temp Source Oral Pulse Oximetry (%) 98 Oxygen Delivery Method Room Air Allergies/Home Meds Allergies & Medications Allergies No Known Allergies Allergy (Verified 12/04/24 09:53) Medication Reconciliation ferrous sulfate 325 mg (65 mg iron) tablet 325 mg PO BID 30 days #60 tabs 08/05/24 [Rx Confirmed 12/04/24] vits no.126-ferrous fum 28 mg iron-folic acid 800 mcg tablet (Classic ) 0.126 - 28 tab PO DAILY 30 days #60 tabs 08/05/24 [Rx Confirmed 12/04/24] Intake Visit Data Collection New Patient or Established: Established Patient (seen at [facility] within 3 years) Reason for Visit:: OBC Seen by Clinical Staff ONLY (RN/MA): No Speech Clinician Required: No Do You Feel Safe at Home: Yes Authorities Contacted: N/A PCP or OBGYN visit in last 3 months: Yes Date of Last PCP or OBGYN visit: 11/25/24 Hx Now: Yes Are you currently on any form of Control: No Pain Present Currently: No Pain Scale Used: Worrell-Suarez/Numerical Pain scale:: 0 Smoking Status Smoking Status: Never smoker Questionnaires Covid-19 Vaccine Questionnaire Has patient been vacinated for Covid-19 Have you been vacinated for Covid-19: Yes PHQ-9 PHQ-2 Over the last 2 weeks, how often have you been bothered by any of the following problems? 1. Little interest or pleasure in doing things: not at all 2. Feeling down, depressed, or hopeless: not at all Total score: 0 PHQ-9 3. Trouble falling or staying asleep, or sleeping too much: Not at all 4. Feeling tired or having little energy: Not at all 5. Poor appetite or overeating: Not at all 6. Feeling bad about yourself - or that you are a failure or have let yourself or your family down: Not at all 7. Trouble concentrating on things, such as reading the newspaper or watching television: Not at all 8. Moving or speaking so slowly that other people could have noticed? - Or the opposite - being so fidgety or restless that you have been moving around a lot more than usual: not at all 9. Thoughts that you would be better off or of hurting yourself in some way: Not at all Total score: 0 If you checked off any problems, how difficult have these problems made it for you to do your work, take care of things at home, or get along with other people?: not difficult at all Source: Developed by Drs. Fito Ramos, Ladan Munoz, Jass Genao and colleagues, with an educational tiana from [employer]. Depression screen completed yes Social History Living Situation History Lives With: Family Housing: House Tobacco History Smoking Status: Never smoker Second Hand Smoke Exposure: No Alcohol History Alcohol Intake: Never Domestic Abuse History Do You Feel Safe at Home: Yes Care OB Visit Log OB Flowsheet Initial Weight: 51 kg Date -?-?-?-?-?-?-?-?-?-?-?-?- EGA Weight BP Alb Glu CTX Pres Fundal ht FHR Mov Dilation Station Effacement Hx Notes Visit Note 07/15/24 -?-?-?-?-?-?-?-?-?-?-?-?- 18w 1d 53.751 kg (+2750.696 g) 97/61 absent unstable 19 156 act tiffani 18 yo for OBI, no OB complaints today. + movemeny, denies PTL complaints. LMP 03/10/25. unsure date. EDC 12/15/24. refill PNV, start calcium and vitamin D daily. schedule MFM sono for anatomy, OB panel with UT and NIPT/carrier screen today. discuss ptl precaution,diet and walking. rtc 3 week 08/05/24 -?-?-?-?-?-?-?-?-?-?-?-?- 21w 1d 54.204 kg (+3204.288 g) 100/61 absent unknown 20 145 act tiffani reports good FM, denies PTL complaints,no leaking. keep MFM appointment 08/26, discuss PTL complaints, refill iron and prenatals, hydrate, rtc 4 wk 08/26/24 -?-?-?-?-?-?-?-?-?-?-?-?- 24w 1d 55.849 kg (+4848.56 g) 114/66 absent unknown 25 150 acti ve +FM, No UCs, No VB Has level 2 ultrasound scheduled today in [place] 09/28/24 -?-?-?-?-?-?-?-?-?-?-?-?- 28w 6d 57.209 kg (+6209.337 g) 103/64 absent unknown 29 134 act tiffani Good movement no contractions no loss of fluids no complaints 10/26/24 -?-?-?-?-?-?-?-?-?-?-?-?- 32w 6d 56.245 kg (+5245.454 g) 102/61 absent unknown 32 156 act tiffani Good movement. No contractions no loss of fluids 1 hour glucose on chart .89 11/16/24 -?-?-?-?-?-?-?-?-?-?-?-?- 35w 6d 57.153 kg (+6152.638 g) 95/57 occasional cephalic 36 154 active 2.5 -1 75 +FM no UCs or LOF GBBS done today 11/25/24 -?-?-?-?-?-?-?-?--?-?-?-?- 37w 1d 56.869 kg (+5869.143 g) 93/60 occasional cephalic 34 157 active Good movement no contractions or loss of fluids. Group B strep negative. 12/04/24 -?-?-?-?-?-?-?-?-?-?-?-?- 38w 3d 56.812 kg (+5812.444 g) 102/65 occasional cephalic 36 129 active 5 -1 80 Good movement no contractions or bleeding Labor precautions. MARGO Calculator Estimated Delivery Date Method Current WG Current Estimate 12/15/24 LMP (Certain) 38w 3d Expected Delivery Route/Plan 19-year-old G1, P0 Anticipate LMP 03/10/24 Specific Issue/Plans Does not desire epidural. Will consider fentanyl PNC Labs: O+/Ab-/RI/RPR NR/HepBSag-/HIV-/Hep c-/GC-/Chlam-/NIPT 46 XY Notes Visit Date: 12/04/24 Last Updated by: Selene Sherwood ([facility] Clinic)MD Patient still has PUPPP as rash on her thighs. Will prescribe hydrocortisone. Patient will likely be in labor later today. Labor precautions given. Visit Date: 11/25/24 Last Updated by: Selene Sherwood ([facility] Clinic)MD Patient has a PUPPS rash on her thighs. Not abdomen. Recommended Zyrtec during the day and Benadryl at night. Visit Date: 10/26/24 Last Updated by: Selene Sherwood ([facility] Clinic)MD Schedule ultrasound for growth and position at 35 weeks Visit Date: 09/28/24 Last Updated by: Selene Sherwood (OB Clinic)MD Normal level 2 ultrasound from 08/27/[address] Sellers in [place] reviewed. Ordered glucose challenge test, RPR and CBC at [facility] [place]. Father the baby present with patient. Visit Date: 08/26/24 Last Updated by: Selene Sherwood (OB Clinic)MD Patient presents today with the father of the baby. Labs reviewed. Blood type reviewed. NIPT normal. Has level 2 ultrasound scheduled today. Visit Date: 08/05/24 Last Updated by: Medina Blanco [facility] 18 yo , lmp 03/10/24. EDC 12/15/24. O+,abs-, rpr;;nr, rub imm, hbsag-,hiv-, HC-, GC/CT-, NIPT-(boy), carrier screen- Office Procedures OBC Clinic LOC & Office Proc's Nursing/Assessment Patient Status: Established Patient OB Clinic Nursing Assessment: Medication Reconciliation, Update PMH in EMR and Vital Signs OB Clinic Coordination of Care: Education Complex Pt/Fam, Consent,records obtained, informed consent, Lab and Imaging orders, Results/Orders obtained and Staff clarify orders Special Needs: Heart tones Established Patient Charge Established Patient Point Assignment: 115 Established Patient Point Charge: EP Level 3 (80-115) Assessment & Plan Diagnosis / Problem List (1) : Status: Acute Qualifiers: Weeks of gestation: 38 weeks Qualified Code(s): Z3A.38 - 38 weeks gestation of Plan: Patient with Pops rash. Hydrocortisone. Benadryl as needed. Labor precautions. Patient will likely be in labor later tonight or this weekend as she is 5 cm. She wants to go natural and does not want an epidural.
== END 2024-12-04 10:14 | disposition home or self-care (01) ==
LOC: HODSOBC 09:37
PROVIDERS: Supervising Provider Obstetrics & Gynecology; Visit Provider Obstetrics & Gynecology
DX: O09.893 Supervision of other high risk pregnancies, third trimester (principal); O26.86 Pruritic urticarial papules and plaques of pregnancy (PUPPP); Z3A.38 38 weeks gestation of pregnancy
CPT/HCPCS: 99213; G0463

== ENCOUNTER 2024-12-06 09:07 | Inpatient (IN) | payer OTHER, SELFPAY ==
[2024-12-06] VITALS (46 sets, daily range): BP systolic 91–128; BP diastolic 53–89; PULSE 66–130; RESP 16–98; TEMP 36.5–37; O2SAT 75–100; BMI 28.5; BMI 26.5
--- NOTE | 2024-12-06 10:02 | PC.NURSE ---
APPROX [id number]- PHONE QUALITY ASSURANCE DIRECT[place] [id number]. OBTAINED CONSENT FOR TO INTERPRET FOR DURATION OF VISIT.
[2024-12-06 10:12] LABS: Basophils # (Auto) 0.1 Thou/mm3 (0.0-0.2); Basophils % (Auto) 1 % (0-2.5); Eosinophils # (Auto) 0.4 Thou/mm3 (0.0-0.5); Eosinophils % (Auto) 3 % (0-10); Hematocrit 36.6 % (36.0-46.0); Hemoglobin 12.8 g/dL (12.0-16.0); Immature Granulocytes Auto 0.08 Thou/mm3 (0.00-0.00); Lymphocytes # (Auto) 1.9 Thou/mm3 (1.0-4.8); Lymphocytes % (Auto) 16 % (10-50); Mean Corpuscular HGB Conc 35.0 g/dl (31.0-37.0); Mean Corpuscular Hemoglobin 31.7 pg (25.0-35.0); Mean Corpuscular Volume 91 fL (80-100); Monocytes # (Auto) 0.8 Thou/mm3 (0.0-0.8); Monocytes % (Auto) 7 % (0-12); Neutrophils # (Auto) 8.9 Thou/mm3 (1.8-7.7); Neutrophils % (Auto) 73 % (37-80); Nucleated Red Blood Cell # 0.00 Thou/mm3 (0.00-0.00); Nucleated Red Blood Cell % 0 /100 WBC (0); Platelet Count 153 Thou/mm3 (140-440); RDW Standard Deviation 42.3 fL (36.4-46.3); Red Blood Count 4.04 Miln/mm3 (4.00-5.20); White Blood Count 12.1 Thou/mm3 (3.6-11.0)
[2024-12-06 10:30] LABS: Amphetamine/Metham Scrn,Ur OB Negative (Negative); Benzoylecgonine Screen, Ur OB Negative (Negative); Opiate Screen,Urine OB Negative (Negative); THC Screen,Urine OB Negative (Negative)
[2024-12-06 11:21] LABS: Syphilis Nonreactive (Nonreactive)
--- NOTE | 2024-12-06 11:43 | ESHP_ITS ---
Documentation for date of: 12/06/24 OB Labor/Induct. HPI History of Present Illness Chief complaint: contractions : 1 Para: 0 Term pregnancies: 0 pregnancies: 0 Living children: 0 History of Abortions: Spontaneous and Elective: 0 History of Vaginal deliveries: 0 History of sections: No History of : No Date of last menstrual period: 03/10/24 MARGO: 12/15/24 Gestational Age (weeks): 38 Gestational Age (days): 5 Gestational age based on last menstrual period: 38 History of present illness: Patient presents for regular, painful ctx. No LOF. No vaginal bleeding. Normal movement. No fevers/chills. History of Present Dating criteria: based on 2nd trimester US only Adequate Care: No (first visit at 19 weeks) Narrative: Late to care at 19wk, otherwise uncomplicated Labs Maternal Blood Type: O Pos Labs: Positive: Rubella Titre, Negative: RPR, Hepatitis B, HIV, Chlamydia, Gonorrhea and Group Beta Strep and Unknown: Herpes Type 1, Herpes Type 2 and Covid-19 Narrative: PNC Labs: O+/Ab-/RI/RPR NR/HepBSag-/HIV-/Hep c-/GC-/Chlam-/NIPT 46 XY Review of Systems Review of Systems Narrative Review of Systems: Review of Systems Systems Reviewed: All systems reviewed, normal except as documented Constitutional Constitutional: Denies body ache(s), Denies chills, Denies fever(s) and Denies headache(s) ENT Ears, Nose, Mouth, and Throat: Denies headache(s) and Denies vertigo Cardiovascular Cardiovascular: Denies chest pain, Denies palpitations, Denies dyspnea and Denies syncope Respiratory Respiratory: Denies cough, Denies dyspnea Gastrointestinal Gastrointestinal: Denies nausea and Denies vomiting Neurologic Neurologic: Denies convulsions, Denies headache(s), Denies other visual disturbances, Denies syncope and Denies vertigo Past Medical History Family History OTHER FAMILY HX: non-contributory Surgical History SURGICAL: Negative Section OTHER SURGICAL HX: denies Social History SOCIAL: No tobacco/ETOH/illicit drug use Past Medical History Comments PMH COMMENT: benign Meds Home Medications and Allergies Allergies Allergy/AdvReac Type Severity Reaction Status Date / Time No Known Allergies Allergy Verified 12/06/24 09:12 OB Exam Physical Exam Vital signs: Temp Pulse Resp BP Pulse Ox 97.8 F 74 18 112/81 99 12/06/24 09:10 12/06/24 11:27 12/06/24 09:10 12/06/24 11:27 12/06/24 11:42 Narrative: General: well developed, well nourished, no acute distress, conversant Cardiac: normal heart rate Lungs: breathing without distress Abdomen: soft, gravid, non-tender, no rebound or guarding Extremities: no edema BLE Detailed Labor and Delivery Exam Dilation (cm): 6 Effacement (%): 80 Cervix position: mid station: -1 Consistency: soft Presentation: Vertex Membranes: intact monitor accelerations: 15x15 monitor decelerations: None longterm variability: Moderate (11-25) Contraction frequency (min): q4 min OB Results Labs 12/06/24 09:30 Labs: Short CBC 12/06/24 Range/Units 09:30 WBC 12.1 H (3.6-11.0) Thou/mm3 Hgb 12.8 (12.0-16.0) g/dL Hct 36.6 (36.0-46.0) % Plt Count 153 (140-440) Thou/mm3 OB Assessment & Plan Assessment and Plan (1) Active labor at term: Status: Acute Assessment and plan: Ia is a 19yo with SIUP at 38&5wk presenting in active labor. Regular/painful contractions, SCE: 6/80/-1. Vitals wnl, benign exam. Reassuring assessment. PMhx/ significant for: late to care at 19 weeks [facility] with Dr. Sherwood Plan: -Admit to L&D -Establish IV, routine labs -CEFM -Clear liquid diet -Manager Statistical Programming/consent re: -GBS status: negative -Anticipate -Safe to proceed (2) 38 weeks gestation of : Status: Acute (3) Late care: Status: Acute
[2024-12-06] MEDS: MINERAL OIL 30 ML UDC TOP (11:53)
[2024-12-06] MEDS: OXYTOCIN in NS 20 units 20 UNIT/1,000 ML BAG 125 UNIT IV (11:56)
[2024-12-06] MEDS: fentaNYL CIT INJ 50 mCg/ML AMP 2ML 100 MCG IVP (11:59)
[2024-12-06] MEDS: BENZO/LANO/ALOE (Dermoplast) 60 GM CAN 1 SPRAY TOP (12:01)
[2024-12-06] MEDS: LIDOCAINE HCL 1% 20 ML VIAL INFL (12:03)
[2024-12-06] MEDS: IBUPROFEN TAB 400 MG TABLET 800 MG PO (12:18)
[2024-12-06] MEDS: METHYLERGONOVINE INJ 0.2 MG/ML VIAL IM (12:33)
--- NOTE | 2024-12-06 12:34 | PD.LDDELS ---
Data (Harley) Data Hx Section: No : 1 Term: 0 : 0 Livin Abortions: Spontaneous & Theraputic: 0 Delivery Data (Harley) Labor Data Initiation of labor: Spontaneous Induction/Augmentation Agent: None ROM date: 12/06/24 ROM time: 11:39 Amniotic membrane rupture type: Artificial Amniotic fluid description: Clear Delivery Data Onset of labor date: 12/06/24 Onset of labor time: 04:00 Complete dilation date: 12/06/24 Complete dilation time: 11:45 delivery date: 12/06/24 delivery time: 11:55 Placenta delivery date: 12/06/24 Placenta delivery time: 12:02 Stage 1 total time: Labor - Stage 1 Duration 7 hours and 45 minutes Delivered by: Jean-Pierre Delivery nurse: Taras Neworn nurse: Clau Seeing Eye Dog Teacher at delivery: No Support person(s) at delivery: FOB Delivery Method Delivery method: Normal Vaginal Delivery Presentation: Vertex Anesthesia Type Anesthesia Type: Local Placenta Placenta delivery description: Spontaneous Cord blood sent to lab: No cord blood collection: Cord Blood Type Episiotomy Episiotomy description: None EBL Estimated blood loss (ml): 250 Umbilical Cord cord description: 3 Vessels Additional Procedures Ia is a 19yo [id number] s/p uncomplicated at 38&5wk after presenting in active labor, delivering at 1155 on 12/06/2024. On presentation, SCE was 6/80/-1. She progressed with only AROM as augmentation to C/C/+2 at which point she began pushing. She declined epidural. With good maternal pushing efforts, infant's head delivered OA and restituted BEATRIS. Left anterior shoulder delivered easily followed by posterior shoulder and corpus. had spontaneous cry and was vigorous. Apgars 9/9. Infant placed on maternal abdomen where nose/mouth were suctioned and dried/stimulated. After approximately 2 minutes, cord was clamped x2 and cut by FOB. Cord blood collected for typing. With fundal massage and cord traction, placenta delivered spontaneously and intact with 3 vessel centrally inserted cord. Bimanual massage performed and IV pitocin given per protocol with fundus then firm at u-2cm and hemostasis noted. Inspection of perineum and vagina revealed bilateral labial lacerations and a 1st degree midline perineal laceration which were repaired in routine fashion with 4-0 and 3-0 vicryl, respectively, after anesthetizing with 1% lidocaine- total reapproximation and hemostasis achieved. Small trickle of blood, so sweep just within cervix/WILLAM performed which retrieved a small amount of clot. 0.2mg IM methergine given with observed hemostasis after. All counts correct x2. Mom and were doing well when I left the room. Loraine Morejon MD Complications Complications: none Data (Harley) Data order: 1 's gender: Male Identification band number: [id number] weight (gms): 3400 g Weight (pounds): 7 lbs and 7.9 ozs [place] length: 53.34 cm 1 minute: 9 5 minutes: 9
[2024-12-06 18:34] LABS: Basophils # (Auto) 0.0 Thou/mm3 (0.0-0.2); Basophils % (Auto) 0 % (0-2.5); Eosinophils # (Auto) 0.1 Thou/mm3 (0.0-0.5); Eosinophils % (Auto) 1 % (0-10); Hematocrit 33.8 % (36.0-46.0); Hemoglobin 11.7 g/dL (12.0-16.0); Immature Granulocytes Auto 0.08 Thou/mm3 (0.00-0.00); Lymphocytes # (Auto) 1.5 Thou/mm3 (1.0-4.8); Lymphocytes % (Auto) 10 % (10-50); Mean Corpuscular HGB Conc 34.6 g/dl (31.0-37.0); Mean Corpuscular Hemoglobin 31.5 pg (25.0-35.0); Mean Corpuscular Volume 91 fL (80-100); Monocytes # (Auto) 1.4 Thou/mm3 (0.0-0.8); Monocytes % (Auto) 9 % (0-12); Neutrophils # (Auto) 12.6 Thou/mm3 (1.8-7.7); Neutrophils % (Auto) 81 % (37-80); Nucleated Red Blood Cell # 0.00 Thou/mm3 (0.00-0.00); Nucleated Red Blood Cell % 0 /100 WBC (0); Platelet Count 164 Thou/mm3 (140-440); RDW Standard Deviation 41.5 fL (36.4-46.3); Red Blood Count 3.71 Miln/mm3 (4.00-5.20); White Blood Count 15.6 Thou/mm3 (3.6-11.0)
[2024-12-06] MEDS: DOCUSATE SOD 100 MG CAPSULE PO (22:48)
[2024-12-07 00:16] VITALS: BP 96/61; PULSE 71; RESP 16; TEMP 36.3; O2SAT 97
[2024-12-07 04:11] VITALS: BP 100/65; PULSE 78; RESP 16; TEMP 36.8; O2SAT 97
[2024-12-07 08:00] VITALS: BP 105/64; PULSE 75; RESP 17; TEMP 36.6; O2SAT 98
[2024-12-07] MEDS: DOCUSATE SOD 100 MG CAPSULE PO (08:16)
--- NOTE | 2024-12-07 10:16 | ESPR_ITS ---
Subjective Subjective Interval history: The patient is a 19-year-old -0-0-1 status post vaginal delivery yesterday by Dr. Bass. She delivered around 11 in the morning yesterday. She presented the hospital 6 cm dilated and active labor and quickly progressed to complete over the next hour or so and did not push long at all. Patient today is resting comfortably. She is breast-feeding. She is tolerating a general diet and voiding. She would like to go home later today. Of note patient speaks mandrin. Her 's aunt is at bedside translating. Exam Vital Signs Temp Pulse Resp BP Pulse Ox O2 Del Method 97.9 F 75 17 105/64 98 Room Air 12/07/24 08:00 12/07/24 08:00 12/07/24 08:00 12/07/24 08:00 12/07/24 08:00 12/07/24 08:00 Narrative Exam Patient is alert and oriented x 3. No apparent distress. Fundus is firm. Extremities show no cyanosis clubbing or edema. Objective Labs 12/06/24 18:21 Labs: Laboratory Results - last 24 hr 12/06/24 12/06/24 12/06/24 09: 09:30 18:21 WBC 12.1 H 15.6 H RBC 4.04 3.71 L Hgb 12.8 11.7 L Hct 36.6 33.8 L MCV 91 91 MCH 31.7 31.5 MCHC 35.0 34.6 RDW Std Deviation 42.3 41.5 Plt Count 153 164 Neut % (Auto) 73 81 H Lymph % (Auto) 16 10 Wheeler % (Auto) 7 9 Eos % (Auto) 3 1 Baso % (Auto) 1 0 Neut # (Auto) 8.9 H 12.6 H Lymph # (Auto) 1.9 1.5 Wheeler # (Auto) 0.8 1.4 H Eos # (Auto) 0.4 0.1 Baso # (Auto) 0.1 0.0 Immature Gran # (Auto) 0.08 H 0.08 H Absolute Nucleated RBC 0.00 0.00 Immature Gran % 1 H 1 H Nucleated RBC % 0 0 Urine Opiates Screen Negative U Amphetamin/Meth Scrn Negative U Cocaine Metab Screen Negative U Marijuana (THC) Screen Negative Syphilis Serology Nonreactive Blood Type O Positive Antibody Screen NEGATIVE Blood Bank Wristband ID Yes Assessment & Plan Problem List (1) 38 weeks gestation of : Status: Acute (2) care following vaginal delivery: Problem details: The patient is day #1 status post vaginal delivery. Patient is doing quite well. The plan will be to discharge home later today. Status: Acute Time Spent With Patient Time: Total time spent is greater than 50% in coordination of care (as documented) at patient's floor/unit and/or counseling patient:
--- NOTE | 2024-12-07 10:20 | PD.LDDS ---
DS: Providers Provider Date of admission: 12/06/24 09:44 Primary care physician: Physician No Primary/Family Admitting Provider: Loraine Morejon MD Attending Provider on Admission: Loraine Morejon MD Consults: 12/06/24 12:37 Referral Routine Comment: Attending Provider on DC: Selene Sherwood MD ([facility]) Discharging Provider: Selene Sherwood MD ([facility]) Anticipated date of discharge: 12/07/24 DS: Diagnosis Discharge Diagnosis (1) care following vaginal delivery: Status: Acute Assessment & Plan: The patient is doing well. Discharge instructions given. Follow-up in 6 weeks. Problem List Completed Was Problem List Reviewed/Reconciled?: Yes Summary/Hosp Course Brief History: Patient presents for regular, painful ctx. No LOF. No vaginal bleeding. Normal movement. No fevers/chills. The patient was admitted by Dr. Morejon 12/06/2024. Please see history and physical for further details. Hospital course: She underwent an uncomplicated vaginal delivery around 1100. Please see delivery note for further details. Case patient had an uncomplicated post course and was discharged home day #1 in stable condition. Peripartum Data Delivery Method: Normal Vaginal Delivery Episiotomy Description: None Laceration Description: see Delivery Summary complications: none Status at Discharge Cognitive/behavioral status at discharge: Patient is alert and orient x 3 in no apparent distress Functional status at discharge: independent ambulation Overall status at discharge: patient is progressing back to baseline Time Spent with Patient Time attestation: Total time spent providing and/or coordinating discharge services: Time spent: Less than 30 minutes Specific discharge activities: Pelvic rest x 6 weeks no intercourse, tampons, douching x 6 weeks Exam Vital Signs Temp Pulse Resp BP Pulse Ox O2 Del Method 97.9 F 75 17 105/64 98 Room Air 12/07/24 08:00 12/07/24 08:00 12/07/24 08:00 12/07/24 08:00 12/07/24 08:00 12/07/24 08:00 Narrative Exam Patient is alert and oriented x 3 no apparent distress, fundus is firm, extremities show no significant edema or erythema Discharge Plan Plan Patient Disposition: HOME (Self Care) Disposition Comment: Stable Patient condition on transfer: Stable Prescriptions/Referrals Prescriptions/Med Rec: New ibuprofen 400 mg Tablet 800 mg PO Q8H PRN (Reason: See Comments) Qty: 60 0RF docusate sodium 100 mg Capsule 100 mg PO BID Qty: 30 0RF No Action ferrous sulfate 325 mg (65 mg iron) tablet 325 mg PO BID 30 Days Qty: 60 3RF Classic 28 mg iron- 800 mcg tablet 0.126 - 28 tab PO DAILY 30 Days Qty: 60 2RF hydrocortisone 2.5 % cream 1 applic topical BID Qty: 30 2RF Referrals: No Primary/Family,Physician [Primary Care Provider] Patient/Caregiver Discharge Instructions Discharge Activity: activity as tolerated and other Other Discharge Activity Instructions:: vaginal rest and no heavy lifting more than 10 pounds for 6 weeks Other Discharge Diet Instructions: regular diet Education Materials: After a Vaginal , Storing Expressed Milk, Nutrition While , : Caring for Yourself Print Language: Gambian Activity Restrictions/Additional Instructions: [facility] 4 to 6 weeks for visit, call for appointment vaginal rest and no heavy lifting more than 10 pounds for 6 weeks Stand Alone Forms: Cynthia Award Info., Patient Portal Info Letter Vaccines Vaccines Given During Stay: TDaP Discharge Order Discharge Orders: Discharge (Routine); Ordered 12/07/24 Ordered By: Selene Sherwood ([facility] Clinic) Planned Discharge Date 12/07/24
[2024-12-07 11:30] VITALS: BP 102/62; PULSE 75; RESP 16; TEMP 37; O2SAT 98
[2024-12-07] MEDS: DIPHTH,PERTUSS(ACELL),TET VAC 0.5 ML SYR- ADULT IMi (12:50)
--- NOTE | 2024-12-07 13:42 | PC.SS ---
CORNER BRACE BLOCK MACHINE OPERATOR conducted bedside contact with the patient to address nursing referral indicating patient was late to care at 18 weeks.? CORNER BRACE BLOCK MACHINE OPERATOR introduced self and role.? At bedside with patient was Comfort AMOR Cha.? Patient gave permission for FOB to be present during discussion.? CORNER BRACE BLOCK MACHINE OPERATOR reviewed basis of referral.? Patient confirmed late to care due to insurance barrier.? Once insurance issue resolved patient was then able to schedule OB appointment with Medina Blanco but following 12 week timeframe for LTC.? Following initial appointment, patient reported consistency with OB appointments.? Infant, Maximiliano; is the patient?s first child.? delivered naturally.? Patient will engage in combo feeding of the .? Patient is not receiving WIC, SNAP or TANF.? Patient denies history of alcohol/drug abuse.? Patient denies CWS intervention.? Patient denies episodes of domestic violence.? Patient denies possessing a history of mental health, reports no current possession of depression or anxiety.? Patient has access to appropriate supplies and equipment; to include a car seat.? FOB will provide transportation upon discharge.? Patient describes possessing support system consisting of FOB and extended family.? CORNER BRACE BLOCK MACHINE OPERATOR provided the patient with community resources to include Parenting Network and Warm Line.? No further intervention required at this time, social media campaign manager will be available to address any further concerns.? CORNER BRACE BLOCK MACHINE OPERATOR updated bedside nurse.?
== END 2024-12-07 15:25 | disposition home or self-care (01) | DRG 807 ==
LOC: S4SX 12:39 → S4NX 15:04
PROVIDERS: Admitting Provider Obstetrics & Gynecology; Visit Provider Obstetrics & Gynecology
DX: O70.0 First degree perineal laceration during delivery (principal); Z37.0 Single live birth; Z3A.38 38 weeks gestation of pregnancy; Z23 Encounter for immunization
CPT/HCPCS: 36415; 59025; 59409; 80307; 85025; 86780; 86850; 86900; 86901; 90715; 94762; J2210; J2590; J3010; J3490; A9270

== ENCOUNTER 2025-01-04 14:05 | Outpatient (AMB) | payer OTHER, SELFPAY ==
--- NOTE | 2025-01-04 14:12 | AMBOBPPN_ITS ---
Vital Signs 01/04/25 14:16 Height 1.5 m Height Method Stated Weight 50.802 kg Weight Measurement Method Standing Scale BMI 22.6 BP 100/64 Blood Pressure Source Automatic Cuff Blood Pressure Location Right Upper Arm Position Sitting Respiration 18 Pulse 70 Pulse Source Monitor Temp 97.7 F Temp Source Temporal Artery Scan Pulse Oximetry (%) 97 Oxygen Delivery Method Room Air Allergies/Home Meds Allergies & Medications Allergies No Known Allergies Allergy (Verified 01/04/25 14:17) Medication Reconciliation ferrous sulfate 325 mg (65 mg iron) tablet 325 mg PO BID 30 days #60 tabs 07/10 11/02 [Rx Confirmed 01/04/25] vits no.126-ferrous fum 28 mg iron-folic acid 800 mcg tablet (Classic ) 0.126 - 28 tab PO DAILY 30 days #60 tabs 08/05/24 [Rx Confirmed 01/04/25] hydrocortisone 2.5 % topical cream 1 applic topical BID #30 grams 12/04/24 [Rx Confirmed 01/04/25] Held on 12/06/24. Instructions: Doctor's Order docusate sodium 100 mg capsule 100 mg PO BID #30 caps 12/07/24 [Rx Confirmed 01/04/25] ibuprofen 400 mg tablet 800 mg (2 x 400 mg) PO Q8H PRN See Comments #60 tabs 12/07/24 [Rx Confirmed 01/04/25] Intake Visit Data Collection New Patient or Established: Established Patient (seen at [facility] within 3 years) Reason for Visit:: Seen by Clinical Staff ONLY (RN/MA): No Rn Plasma Center Required: No Do You Feel Safe at Home: Yes Authorities Contacted: N/A PCP or OBGYN visit in last 3 months: Yes Date of Last PCP or OBGYN visit: 12/07/24 Hx Now: No Are you currently on any form of Control: No Pain Present Currently: No Pain Scale Used: Worrell-Suarez/Numerical Pain scale:: 0 Smoking Status Smoking Status: Never smoker Immunizations Flu Vaccine in the Last 12 Months: Yes Flu Vaccine Exclusion Criteria: Already Received 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: Past Medical History Past Medical History: No Hx Cardiac Disorders, No Hx Cancer, No Hx Blood Disorders, No Hx Anemia, No Hx Renal Disease, No Hx Diabetes Mellitus Type 1 and No Hx Diabetes Mellitus Type 2 Questionnaires Covid-19 Vaccine Questionnaire Has patient been vacinated for Covid-19 Have you been vacinated for Covid-19: No Social History Living Situation History Marital Status: Lives With: Family Housing: House Tobacco History Smoking Status: Never smoker Second Hand Smoke Exposure: No Alcohol History Alcohol Intake: Never Domestic Abuse History Do You Feel Safe at Home: Yes EPDS - PP Depression Screening [place] Pospartum Depression Screen I have been able to laugh and see the funny side of things: (0) As much as I always could I have looked forward with enjoyment to things: (0) As much as I ever did I have blamed myself unnecessarily when things went wrong: (0) No, never I have been anxious or worried for no good reason: (0) No, not at all I have felt scared or panicky for no very good reason: (0) No, not at all Things have been getting on top of me: (0) No, I have been coping as well as ever I have been so unhappy that I have had difficulty sleeping: (0) No, not at all I have felt sad or miserable: (0) No, not at all I have been so unhappy that I have been crying: (0) No, never The thought of harming myself has occurred to me: (0) Never EPDS completed yes Care OB Visit Log OB Flowsheet Initial Weight: 51 kg Date -?-?-?-?-?-?-?-?-?-?-?-?- EGA Weight BP Alb Glu CTX Pres Fundal ht FHR Mov Dilation Station Effacement Hx Notes Visit Note 07/15/24 -?-?-?-?-?-?-?-?-?-?-?-?- 18w 1d 53.751 kg (+2750.696 g) 97/61 absent unstable 19 156 act tiffani 18 yo for OBI, no OB complaints today. + movemeny, denies PTL complaints. LMP 03/10/25. unsure date. EDC 12/15/24. refill PNV, start calcium and vitamin D daily. schedule MFM sono for anatomy, OB panel with UT and NIPT/carrier screen today. discuss ptl precaution,diet and walking. rtc 3 week 08/05/24 -?-?-?-?-?-?-?-?-?-?-?-?- 21w 1d 54.204 kg (+3204.288 g) 100/61 absent unknown 20 145 act tiffani reports good FM, denies PTL complaints,no leaking. keep MFM appointment 08/26, discuss PTL complaints, refill iron and prenatals, hydrate, rtc 4 wk 08/26/24 -?-?-?-?-?-?-?-?-?-?-?-?- 24w 1d 55.849 kg (+4848.56 g) 114/66 absent unknown 25 150 acti ve +FM, No UCs, No VB Has level 2 ultrasound scheduled today in [place] 09/28/24 -?-?-?-?-?-?-?-?-?-?-?-?- 28w 6d 57.209 kg (+6209.337 g) 103/64 absent unknown 29 134 act tiffani Good movement no contractions no loss of fluids no complaints 10/26/24 -?-?-?-?-?-?-?-?-?-?-?-?- 32w 6d 56.245 kg (+5245.454 g) 102/61 absent unknown 32 156 act tiffani Good movement. No contractions no loss of fluids 1 hour glucose on chart .89 11/16/24 -?-?-?-?-?-?-?-?-?-?-?-?- 35w 6d 57.153 kg (+6152.638 g) 95/57 occasional cephalic 36 154 active 2.5 -1 75 +FM no UCs or LOF GBBS done today 11/25/24 -?-?-?-?-?-?-?-?-?-?-?-?- 37w 1d 56.869 kg (+5869.143 g) 93/60 occasional cephalic 34 157 active Good movement no contractions or loss of fluids. Group B strep negative. 12/04/24 -?-?-?-?-?-?-?-?-?-?-?-?- 38w 3d 56.812 kg (+5812.444 g) 102/65 occasional cephalic 36 129 active 5 -1 80 Good movement no contractions or bleeding Labor precautions. MARGO Calculator Estimated Delivery Date Method Current WG Current Estimate 12/15/24 LMP (Certain) 42w 6d Expected Delivery Route/Plan 19-year-old G1, P0 Anticipate LMP 03/10/24 Specific Issue/Plans Does not desire epidural. Will consider fentanyl PNC Labs: O+/Ab-/RI/RPR NR/HepBSag-/HIV-/Hep c-/GC-/Chlam-/NIPT 46 XY Notes Visit Date: 12/04/24 Last Updated by: Selene Sherwood ([facility])MD Patient still has PUPPP as rash on her thighs. Will prescribe hydrocortisone. Patient will likely be in labor later today. Labor precautions given. Visit Date: 11/25/24 Last Updated by: Selene Sherwood ([facility])MD Patient has a PUPPS rash on her thighs. Not abdomen. Recommended Zyrtec during the day and Benadryl at night. Visit Date: 10/26/24 Last Updated by: Selene Sherwood ([facility])MD Schedule ultrasound for growth and position at 35 weeks Visit Date: 09/28/24 Last Updated by: Selene Sherwood ([facility])MD Normal level 2 ultrasound from 08/27/[address] Sellers in [place] reviewed. Ordered glucose challenge test, RPR and CBC at [facility]. Father the baby present with patient. Visit Date: 08/26/24 Last Updated by: Selene Sherwood ([facility] Clinic)MD Patient presents today with the father of the baby. Labs reviewed. Blood type reviewed. NIPT normal. Has level 2 ultrasound scheduled today. Visit Date: 08/05/24 Last Updated by: Medina Blanco CNM 18 yo , lmp 03/10/24. EDC 12/15/24. O+,abs-, rpr;;nr, rub imm, hbsag-,hiv-, HC-, GC/CT-, NIPT-(boy), carrier screen- HPI Interval History: 19-year-old 1 para para 1 for 4-week . Patient had a spontaneous vaginal delivery December 06, 2024. A baby boy weighing 7 pounds 7 she is breast and bottlefeeding she is happy and denies depression. Father the baby is involved and. No discomforts or complaints. And patient is unsure what she wants to use for control Delivery type: vaginal Was labor induced: no Gestational age at delivery (weeks): 38 Delivery date: 12/13/24 Delivering provider: daniel Is patient infant: Yes Is patient sexually active: No Contraception planned: unsure Exam Narrative Physical exam: Normal heart rate and rhythm. Lungs clear no wheezes. Abdomen is soft nontender. Uterus well involuted. Perineum is intact no lacerations. No swelling. Small lochia. Negative Homans' sign. 2+ DTRs. No edema no swelling. Breasts are soft General Limitations: no limitations General Appearance: alert, in no apparent distress, comfortable, cooperative, healthy appearing, well developed and well groomed Head Head exam: atraumatic, normocephalic and normal inspection ENT ENT exam: Present normal exam, normal oropharynx and mucous membranes moist Chest Chest inspection: Present normal inspection and symmetric chest wall rise Resp Respiratory exam: Present normal lung sounds bilaterally Card Cardiovascular exam: Present regular rate, normal rhythm and normal heart sounds Abdominal Abdominal exam: Present soft and normal bowel sounds Psych Psychiatric exam: Present normal affect and normal mood Office Procedures [facility] LOC & Office Proc's Nursing/Assessment Patient Status: Established Patient OB Clinic Nursing Assessment: Medication Reconciliation, Update PMH in EMR and Vital Signs OB Clinic Coordination of Care: Complex Care and Chronic Disease 1-5, Education Complex Pt/Fam, Consent,records obtained, informed consent, Results/Orders obtained and Staff clarify orders Established Patient Charge Established Patient Point Assignment: 95 Established Patient Point Charge: EP Level 3 (80-115) Antepartum Initial or Follow-up Antepartum Follow up Visit: Yes Assessment & Plan Diagnosis / Problem List (1) Routine Follow-Up: (2) Encounter for visit: Status: Acute Plan Reviewed latching and breast-feeding positions. Increase fluids. Continue prenatals. Comfort measures for vaginal tear. We discussed control options and patient will think about what she did like to use and return in 3 weeks for control initiation Care Reviewed delivery summary and any complications: No Uterus involuted to: 3 below Perineal / incision healing noted: Yes Screened for depression: Yes Depression counseling provided: No Discussed family planning & contraception: Yes Contraception planned: unsure Counseling on safe resumption of sexual activity: Yes Counseling on gradual excercise: Yes Discussed and concerns (describe), provided support: Yes Referred to pediatric clinical nurse specialist: No Counseled on good nutrition, hydration, and self care: Yes Reviewed vaccine status: No Follow up: routine/prn Additional counseling & anticipatory guidance provided: Continue sitz bath's and comfort measures for vaginal lacerations. No sex. Review control options. And patient will return in 3 weeks to discuss options (FP) Tobacco Smoking Status: Never smoker
[2025-01-04 14:16] VITALS: BP 100/64; PULSE 70; RESP 18; TEMP 36.5; O2SAT 97; BMI 22.6
== END 2025-01-04 14:54 | disposition home or self-care (01) ==
LOC: HODSOBC 14:05
PROVIDERS: Supervising Provider Advanced Practice Midwife; Visit Provider Advanced Practice Midwife
DX: Z39.2 Encounter for routine postpartum follow-up (principal); Z39.1 Encounter for care and examination of lactating mother
CPT/HCPCS: 99213; Z1034; G0463